=== PATIENT | male | born 1970 | race Caucasian/White ===

== ENCOUNTER 2016-11-24 12:26 | Emergency (ER) | payer OTHER ==
[2016-11-24 12:35] VITALS: BP 160/100; PULSE 78; RESP 14; TEMP 98.4; O2SAT 96
--- NOTE | 2016-11-24 13:22 | UCPHY ---
H & P Patient Type: New Smoking Status: Current every day smoker Time Seen by Provider: 11/24/16 12:43 HPI/ROS: CHIEF COMPLAINT: right pinky finger swelling HISTORY OF PRESENT ILLNESS: 46-year-old male presents complaining of right pinky finger swelling x3 days. Patient reports over a year ago he cut this on metal sheeting, he was not seen or treated for this, it healed without difficulties, 2-3 days ago he noticed some swelling in the pad of this right pinky finger that has increased with tenderness to palpation. Patient denies fevers or chills, no pain beyond the tip of this finger. Patient thinks he knocked this finger at work a few days ago which started the swelling. No other complaints. Tetanus is up-to-date. No break in skin. (Roxanne Ochoa) Physical Exam: GEN: Awake, alert, oriented, no acute distress RESP: nl resp effort MSK: Right pinky finger with 2 point discrimination intact, full active range of motion against resistance of the DIP, PIP and MCP joint. Pea-sized mass to palmar aspect pad distal right pinky finger, no erythema, mild tenderness to palpation. SKIN: No break in skin, no lymphangitis, no evidence of cellulitis (Roxanne Ochoa) Constitutional: Initial Vital Signs Temperature (C) 36.9 C 11/24/16 12:33 Heart Rate 78 11/24/16 12:33 Respiratory Rate 14 11/24/16 12:33 Blood Pressure 160/100 H 11/24/16 12:33 O2 Sat (%) 96 11/24/16 12:33 O2 Delivery Mode Room Air Allergies/Adverse Reactions: No Known Allergies Allergy (Verified 11/24/16 12:35) Home Medications: Medication Instructions Recorded Ibuprofen [Motrin (*)] 600 mg PO Q6 PRN #30 tab 08/23/15 MDM/Departure - MDM Diagnostics: Right pinky finger x-ray independently reviewed by me- IMPRESSION: No evidence for a radiopaque foreign body or osseous abnormality. Dictated By: Ted Medina MD (Roxanne Ochoa) Procedures: Procedure: Incision and Drainage cyst. The patient's cyst was located on the right pinky finger. Risks, benefits, alternatives discussed with the patient and consent obtained. The area was prepped and draped in sterile fashion. The patient received local anesthesia with 1% lidocaine without epinephrine using a digital block The cyst was incised with a #11 blade pea size cyst capsule removed. One, 5.0 Prolene simple interrupted suture placed The patient tolerated the procedure well. The procedure was performed by myself. (Roxanne Ochoa) ED Course/Re-evaluation: The patient was evaluated and managed by the nurse practitioner, Roxanne Ochoa. My co-signature indicates that I have reviewed this chart and I agree with the findings and plan of care as documented. I am the secondary supervising physician. (Saida Gatica) - Depart Disposition: Home, Routine, Self-Care Clinical Impression: Inclusion cyst Condition: Good Instructions: Epidermal Inclusion Cysts (ED) Additional Instructions: Wash daily with soap and water, place antibiotic ointment and Band-Aid. Return for suture removal in 12 days, return sooner for any signs of infection. Stand Alone Forms: Work Excuse Referrals: NONE *PRIMARY CARE P,. [Primary Care Provider] - As per Instructions - PQRS PQRS Measurement: na (Roxanne Ochoa)
--- NOTE | 2016-11-24 14:32 | DX ---
Right Fifth Finger, 3 Views HISTORY: Right fifth finger swelling, evaluate for foreign body. FINDINGS: Normal mineralization and alignment. Soft tissue prominence palmar aspect of the fifth dist al phalanx. No evidence for soft tissue calcification or radiopaque foreign body. No evidence for acu te fracture or dislocation. IMPRESSION: No evidence for a radiopaque foreign body or osseous abnormality.
== END 2016-11-24 14:43 | disposition home or self-care (01) ==
LOC: CED 12:26
PROC: 0H9FXZZ Drainage of Right Hand Skin, External Approach (ICD-10-PCS; principal; 2016-11-24)
DX: L72.0 Epidermal cyst (principal)
CPT/HCPCS: 73140-PO; G0463-PO